=== PATIENT | male | born 2000 | race African-American/Black ===

== ENCOUNTER 2025-05-25 17:25 | Emergency (ER) | payer SELFPAY ==
[~2025-05-25] VITALS: Ht 180.3 cm; Wt 98.0 kg
[2025-05-25 17:42] VITALS: O2SAT 99
[2025-05-25] MEDS: ACETAMINOPHEN 500MG TABLET PO ONE (22:10)
[2025-05-25 23:02] LABS: INFLUENZA TYPE A Presumptive Negative (Pres. Neg.)
[2025-05-25 23:03] LABS: INFLUENZA TYPE B Presumptive Negative (Pres. Neg.)
[2025-05-25] MEDS ORDERED: ACET-2708 MT (23:19)
[2025-05-25] MEDS ORDERED: GUAI120017 MT (23:19)
[2025-05-25 23:46] VITALS: BP 117/83; PULSE 94; RESP 17; TEMP 37; O2SAT 99
== END 2025-05-25 23:48 | disposition home or self-care (01) ==
LOC: ER 17:25
DX: B34.9 Viral infection, unspecified (principal); Z20.822 Contact with and (suspected) exposure to COVID-19
CPT/HCPCS: 87426; 87804; 99283